=== PATIENT | male | born 1930 | race Caucasian/White ===

== ENCOUNTER 2018-10-27 09:50 | Emergency (ER) | payer MEDICARE, OTHER ==
[~2018-10-27] VITALS: Ht 182.9 cm; Wt 88.9 kg
[~2018-10-27 09:50] MED LIST: AMIO200T40 PO; ASPI-1265 PO; B2/V1TAB; ESOM40CA30 PO; GLUC-221; MAGN500C16 PO; METO1TAB12 PO; MULT-1141 PO; SIMV40TA PO; VALS80TA2 PO; XAL0.005OS OP
[2018-10-27 09:57] VITALS: BP 160/74
== END 2018-10-27 12:39 | disposition home or self-care (01) ==
LOC: ER 09:51
DX: S90.02XA Contusion of left ankle, initial encounter (principal); I48.91 Unspecified atrial fibrillation; I25.10 Atherosclerotic heart disease of native coronary artery without angina pectoris; I10 Essential (primary) hypertension; Z98.61 Coronary angioplasty status; Z79.82 Long term (current) use of aspirin; Z79.899 Other long term (current) drug therapy; X58.XXXA Exposure to other specified factors, initial encounter; Y93.89 Activity, other specified; Y92.89 Other specified places as the place of occurrence of the external cause; Y99.8 Other external cause status
CPT/HCPCS: 93971; 99284

== ENCOUNTER 2018-10-30 12:24 | Emergency (ER) | payer MEDICARE, OTHER ==
[2018-10-30 13:51] VITALS: BP 117/90
--- NOTE | 2018-10-30 15:15 | NUR ---
Patient seen and assessed by provider.
== END 2018-10-30 15:26 | disposition home or self-care (01) ==
LOC: ER 12:24
DX: S90.02XA Contusion of left ankle, initial encounter (principal); I48.91 Unspecified atrial fibrillation; I25.10 Atherosclerotic heart disease of native coronary artery without angina pectoris; I10 Essential (primary) hypertension; Z95.1 Presence of aortocoronary bypass graft; Z79.82 Long term (current) use of aspirin; X58.XXXA Exposure to other specified factors, initial encounter; Y93.89 Activity, other specified; Y92.89 Other specified places as the place of occurrence of the external cause; Y99.8 Other external cause status
CPT/HCPCS: 73610; 99283